=== PATIENT | male | born 1940 | race Caucasian/White ===

== ENCOUNTER 2017-09-28 10:58 | Emergency (ER) | payer OTHER, MEDICAID ==
[~2017-09-28] VITALS: Ht 170.2 cm; Wt 63.5 kg
[2017-09-28 11:00] VITALS: BP_SYST 153
--- NOTE | 2017-09-28 11:00 | NUR ---
BIB BLS from home Placed in room 02. Placed on clinical research monitor, blood pressure machine and pulse oximeter. To gown for exam. Side rails up. Pt blood sugar was 45 at home. D50 IVP given by EMS. Repeat bs 250 upon ED arrival. Pt awake, skin diaphoretic. Per report, pt has had many episodes of low bs with medic response.
--- NOTE | 2017-09-28 11:10 | NUR ---
Pt presents to ER coming from home c/o low blood sugar. Pt states bs was 45 before calling paramedics, pt received amp d50 en route and bs up to 250. Pt is AOX4, skin is cool & diaphoretic, pt speaking full sentences, no signs of respiratory distress, pt denies any pain at the moment.
--- NOTE | 2017-09-28 11:35 | NUR ---
Pt on gurney eating lunch, VSS, will continue to monitor.
[2017-09-28] MEDS ORDERED: NACL 0.9% 1,000 ML IV ONE ×2 (11:38→11:45)
[2017-09-28] MEDS ORDERED: ASPIRIN 81 MG TAB.CHEW PO ONE (11:45)
[2017-09-28 12:07] LABS: BASOPHILS % (AUTO) 0.2 % (0.0-2.0); EOSINOPHILS # (AUTO) 0.1 K/uL (0.0-0.4); EOSINOPHILS % (AUTO) 1.3 % (0.0-4.0); HEMATOCRIT 44.1 % (36-54); HEMOGLOBIN 14.2 g/dL (14.0-18.0); LYMPHOCYTES # (AUTO) 0.9 K/uL (1.0-5.5); LYMPHOCYTES % (AUTO) 8.6 % (20.5-51.5); MEAN CORPUSCULAR HEMOGLOBIN 30 pg (27-31); MEAN CORPUSCULAR HGB CONC 32 % (32-36); MEAN CORPUSCULAR VOLUME 93 fL (79.0-98.0); MONOCYTES # (AUTO) 0.8 K/uL (0.0-1.0); MONOCYTES % (AUTO) 7.6 % (1.7-9.3); NEUTROPHILS # (AUTO) 9.2 K/uL (1.8-7.7); NEUTROPHILS % (AUTO) 82.3 % (40.0-70.0); PLATELET COUNT (AUTO) 270 K/uL (130-430); RED BLOOD CELL COUNT(AUTO) 4.73 MIL/uL (4.2-6.2); RED CELL DISTRIBUTION WIDTH 12.6 % (9.0-15.0)
[2017-09-28 12:08] LABS: ANION GAP 6 (5-15); CALCIUM 9.6 mg/dL (8.4-11.0); CHLORIDE 103 mmol/L (98-107); CREATININE 0.96 mg/dL (0.55-1.30); GLUCOSE 96 mg/dL (70-99); POTASSIUM 3.9 mmol/L (3.5-5.1); SODIUM SERUM 139 mmol/L (136-145); UREA NITROGEN, BLOOD 20 mg/dL (8-21)
[2017-09-28 12:12] LABS: INR 0.9 (0.80-1.20); PROTHROMBIN TIME 9.6 SECS (9.5-12.5)
[2017-09-28 12:16] LABS: ALANINE AMINOTRANSFERASE 30 U/L (12-78); ALBUMIN 3.5 g/dL (3.4-4.8); ASPARTATE AMINOTRANSFERASE 29 U/L (10-37); TOTAL BILIRUBIN 0.3 mg/dL (0.0-1.0)
[2017-09-28] MEDS ORDERED: GLUCAGON,HUMAN RECOMBINANT 1 MG VIAL IVP ONE (12:45)
--- NOTE | 2017-09-28 12:45 | NUR ---
Dr. Owens at bedside updating pt on lab results.
--- NOTE | 2017-09-28 13:17 | NUR ---
Contacted pt's Carito she states she will come to pick pt up.
[2017-09-28 13:38] VITALS: BP_SYST 150
--- NOTE | 2017-09-28 13:38 | NUR ---
Patient given written and verbal discharge instructions and verbalizes understanding. ER MD discussed with patient the results and treatment provided. Patient in stable condition. ID arm band removed. IV catheter removed intact and dressing applied, no active bleeding. No Rx given. Patient educated on pain management and to follow up with PMD. Pain Scale 0/10. Opportunity for questions provided and answered. Medication side effect fact sheet provided. Pt placed in ER waiting room, waiting for to pick him up.
== END 2017-09-28 13:38 | disposition home or self-care (01) ==
LOC: SED 10:58
DX: E11.649 Type 2 diabetes mellitus with hypoglycemia without coma (principal); I10 Essential (primary) hypertension; E78.00 Pure hypercholesterolemia, unspecified
CPT/HCPCS: 36415; 71045; 80053; 84484; 85025; 85610; 85730; 93005; 96361; 96374; 99285; J1610; J7030

== ENCOUNTER 2018-12-25 11:45 | Inpatient (IN) | payer OTHER, MEDICAID ==
[~2018-12-25] VITALS: Ht 170.2 cm; Wt 63.5 kg
[2018-12-25 14:30] VITALS: BP_SYST 132
--- NOTE | 2018-12-25 14:31 | NUR ---
RECORDEDADMISSION: The patient, AUSTEN DIAZ, 78 y/o, M admitted by SON RIVAS MD, was given written information regarding hospital policies, unit procedures and contact persons. Valuables were checked and .
[2018-12-25] MEDS ORDERED: SITA100T11 PO (15:24)
[2018-12-25] MEDS ORDERED: INSU100V9 SQ ×2 (15:24)
[2018-12-25] MEDS ORDERED: ENAL5TAB77 PO (15:24)
[2018-12-25] MEDS ORDERED: APIX5TAB4 PO (15:24)
[2018-12-25] MEDS ORDERED: TAMS-11 PO (15:24)
[2018-12-25] MEDS ORDERED: ASPI-1154 PO (15:24)
[2018-12-25] MEDS ORDERED: LIP40 PO (15:24)
[2018-12-25 15:38] VITALS: BP_SYST 155
--- NOTE | 2018-12-25 16:00 | NUR ---
RN ROUNDS PATIENT IS RESTING COMFORTABLY IN BED. NO S/S OF DISTRESS OR SOB. PATIENT IS AWAKE AND ALERT. PATIENT ON ROOM AIR. NO NEEDS AT THIS TIME. CALL LIGHT IN REACH, BED IN LOWEST POSITION, AND WILL CONTINUE TO MONITOR.
[2018-12-25] MEDS: D5/0.45 NS 1,000 ML IV SCH (16:28)
--- NOTE | 2018-12-25 18:05 | NUR ---
CLOSING NOTE: PATIENT IS RESTING COMFORTABLY IN BED. NO S/S OF DISTRESS OR SOB. PATIENT IS AWAKE AND ALERT. NO S/S OF DISTRESS OR SOB. IV IS PATENT AND INFUSING. ALL NEEDS MET DURING SHIFT. CALL LIGHT IN REACH, BED IN LOWEST POSITION, AND WILL GIVE REPORT TO NIGHT NURSE.
[2018-12-25 19:08] VITALS: BP_SYST 128
--- NOTE | 2018-12-25 19:08 | NUR ---
Start of shift Assessment Received patient resting in bed awake alert oriented x2 with at bedside. No c/o pain and no s/s of any distress noted. IV noted L hand g 20 no infiltrate and with good blood return. All extremities are strong, ambulatory. Call light in reach, bed alarm, and side rails up x2 for safety. Will cont to monitor.
[2018-12-25 19:36] LABS: BASOPHILS # (AUTO) 0.1 K/uL (0.0-0.2); BASOPHILS % (AUTO) 0.7 % (0.0-2.0); EOSINOPHILS # (AUTO) 0.2 K/uL (0.0-0.4); EOSINOPHILS % (AUTO) 2.1 % (0.0-4.0); HEMATOCRIT 35.5 % (36-54); HEMOGLOBIN 11.5 g/dL (14.0-18.0); LYMPHOCYTES # (AUTO) 1.6 K/uL (1.0-5.5); LYMPHOCYTES % (AUTO) 14.1 % (20.5-51.5); MEAN CORPUSCULAR HEMOGLOBIN 28 pg (27-31); MEAN CORPUSCULAR HGB CONC 32 % (32-36); MEAN CORPUSCULAR VOLUME 88 fL (79.0-98.0); MONOCYTES % (AUTO) 9.4 % (1.7-9.3); NEUTROPHILS # (AUTO) 8.2 K/uL (1.8-7.7); NEUTROPHILS % (AUTO) 73.7 % (40.0-70.0); PLATELET COUNT (AUTO) 263 K/uL (130-430); RED BLOOD CELL COUNT(AUTO) 4.05 MIL/uL (4.2-6.2); WHITE BLOOD COUNT (AUTO) 11.1 K/uL (4.8-10.8)
[2018-12-25 19:43] LABS: ANION GAP 6 (5-15); CALCIUM 8.6 mg/dL (8.4-11.0); CHLORIDE 102 mmol/L (98-107); CREATININE 1.05 mg/dL (0.55-1.30); GLUCOSE 144 mg/dL (70-99); POTASSIUM 4.1 mmol/L (3.5-5.1); SODIUM SERUM 139 mmol/L (136-145); UREA NITROGEN, BLOOD 26 mg/dL (8-21)
[2018-12-25 19:58] LABS: ALANINE AMINOTRANSFERASE 23 U/L (12-78); ALBUMIN 2.6 g/dL (3.4-4.8); ASPARTATE AMINOTRANSFERASE 29 U/L (10-37); THYROID STIMULATING HORMONE 0.67 uIu/mL (0.36-3.74); TOTAL BILIRUBIN 0.3 mg/dL (0.0-1.0)
[2018-12-25] MEDS: APIXABAN 2.5 MG TABLET PO SCH (20:29)
--- NOTE | 2018-12-25 22:50 | NUR ---
Assisted to ambulate Assisted to ambulate in the hallway and safely back to bed. No c/o pain and no s/s of any distress noted. Call light in reach, will cont to monitor.
[2018-12-26 00:33] VITALS: BP_SYST 127
--- NOTE | 2018-12-26 04:14 | NUR ---
Assisted to b/r Assisted to bathroom and safely back to bed. No c/o pain and no s/s of any distress noted. Call light in reach, will cont to monitor.
[2018-12-26] MEDS: D5/0.45 NS 1,000 ML IV SCH (06:15)
--- NOTE | 2018-12-26 06:45 | NUR ---
End of shift Notes Patient is resting in bed with eyes close at this time. No c/o pain noted. All needs met and anticipated by staff. Call light in reach, bed alarm on, and side rails up x3 for safety. Will endorse care to incoming nurse.
--- NOTE | 2018-12-26 07:54 | NUR ---
Opening Note Report received from Karel MILLER shift nurse. Patient is awake, however, is very anxious and states that he wants to go home. Patient is alert and oriented x 2. Patient insists on ambulating around the unit with a walker. He is also refusing to the the bed alarm in place. Education on fall prevention was done. Patient was dismissive. IV is on the left hand 20 running D51/2NS@100. Call light is within reach and bed is in the lowest position. Will continue to monitor.
[2018-12-26 08:00] VITALS: BP_SYST 134
[2018-12-26] MEDS: ENALAPRIL MALEATE 5 MG TABLET (VASOTEC) PO SCH (09:37)
[2018-12-26] MEDS: ATORVASTATIN 20 MG TABLET PO SCH (09:37)
[2018-12-26] MEDS: TAMSULOSIN HCL 0.4 MG CAP PO SCH (09:37)
[2018-12-26] MEDS: ASPIRIN 81 MG TABLET(ECOTRIN) PO SCH (09:37)
[2018-12-26] MEDS: APIXABAN 2.5 MG TABLET PO SCH ×2 (09:43→21:20)
--- NOTE | 2018-12-26 10:30 | NUR ---
Rounds Patient once again stated that he wants to go home. Reorientation was provided.
--- NOTE | 2018-12-26 11:31 | NUR ---
Psych consult called: for Dr. Saleh, regarding agressive behavior, ordered by Dr. Crandall, spoke with Timbo. Face sheet faxed to office of Dr. Saleh: fax: [phone]
--- NOTE | 2018-12-26 11:43 | NUR ---
Survey Research Associate Note ICE CARVER was alerted that patient may need lobsterman placement. He has become violent with his and she stated she can no longer care for him at home. Alerted HCP MICHELE Paiz [phone]. She will discuss with Dr Crandall. Patient has Medi-Jay secondary.
--- NOTE | 2018-12-26 12:25 | NUR ---
Called Called Dr. Crandall to inform him that the patient's current BS is 361. There is no insulin coverage at this time. stated to dc the IV fluids.
[2018-12-26 14:10] VITALS: BP_SYST 131
--- NOTE | 2018-12-26 14:48 | NUR ---
Rounds Patient is ambulating around the unit with a walker despite being on fall precautions.
[2018-12-26 16:11] VITALS: BP_SYST 100
--- NOTE | 2018-12-26 17:09 | NUR ---
Accu check/MD Called Current accu check is 585. Hyperglycemia protocol initiated. Dr. Crandall called. Currently waiting for a call back.
--- NOTE | 2018-12-26 17:16 | NUR ---
ATTENDING MD DR RIVAS WAS CALLED RE: BS OF 205. SPOKE TO URVASHI
--- NOTE | 2018-12-26 17:34 | NUR ---
Called Dr. Crandall called again for the patient's BS of 585.
--- NOTE | 2018-12-26 17:55 | NUR ---
Med Given Administered 10 units of Regular insulin per MD order. Will recheck BS in 15 min.
[2018-12-26] MEDS ORDERED: INSULIN REGULAR, HUMAN 100 UNITS/ML, 10 ML VIAL SUBCUT ONE ×2 (18:00→18:45)
--- NOTE | 2018-12-26 18:22 | NUR ---
MD SCOTT PAGING THE [employer] DISTRICT SUPERVISOR PHYSICIAN: DR. RIVAS, REGARDING ORDERS, SPOKE WITH NATALIIA Addendum: 12/26/18 at 1828 by Nicolasa Russ [place]/ *DR. GEE IS [employer] DISTRICT SUPERVISOR
--- NOTE | 2018-12-26 18:23 | NUR ---
Accu check Checked BS again it is currently > 600. Calling MD precision farming coordinator for further orders.
--- NOTE | 2018-12-26 18:45 | NUR ---
Insulin given/Spoke with MD Spoke with Dr. Gutierrez and notified MD of BS > 600. 14 units of regular insulin was administered. Order for regular SS was obtained. Will recheck BS again per protocol. MD also wants BS to be checked in 2 hrs and notified of results.
--- NOTE | 2018-12-26 19:20 | NUR ---
Opening Note Late entry d/t patient care. Received report from DAKOTA Falcon and patient was awake, standing in hallway next to his room. Upon completion of report patient walked back to room, and sat on the edge of bed with feet dangling. He was not short of breath, nor did he exhibit labored breathing. He was AOx3. IV is on left hand and is saline locked. Bed is locked to lowest position and call light within reach. Presently bed alarm is not on. His is at bedside visiting. Updated board and reviewed plan of care. asked that we request advance directive record from [facility], stating she might not be able to bring the form from her house, since transportation is an issue. She signed the medical records release form.
[2018-12-26 20:00] VITALS: BP_SYST 96
--- NOTE | 2018-12-26 21:20 | NUR ---
NOTES Patient presently resting in bed, in no distress, nonlabored breathing on room air. Due medication given and assessed fingerstick blood glucose; obtained result of 433, will call
--- NOTE | 2018-12-26 21:31 | NUR ---
Fingerstick BG is 433 mg/dL Called and spoke w/ Dr. Gutierrez. She was informed of Fingerstick BG result of 433 mg/dL. She said go ahead and give the 12Units Reg insulin per protocol as ordered, re-check FBG in two hours and call w/ results.
[2018-12-26] MEDS: INSULIN REGULAR, HUMAN 100 UNITS/ML, 10 ML VIAL (novoLIN R) SUBCUT PRN (21:40)
--- NOTE | 2018-12-26 22:33 | NUR ---
NOTES Patient is resting in bed on side posture. Presently bed alarm is off, he refused after it went off earlier. He was educated on risks and benefits of bed alarm. Call light w/in reach. Will monitor.
--- NOTE | 2018-12-26 23:22 | NUR ---
NOTES - Fingerstick BG Per Dr. Gutierrez's order a Fingerstick BG was done and obtained result of 273 mg/dL, will notify .
--- NOTE | 2018-12-26 23:27 | NUR ---
s/w Spoke to Dr. Gutierrez and reported FBG result of 273 mg/dL. She said that is fine and not to give insulin. She gave an order for next FBG test to be done at 0500. I read back and confirmed order.
--- NOTE | 2018-12-26 23:54 | NUR ---
NOTES OOB and ambulating w/FWW, standing at doorway, he did not call for help. I asked if he needs help. He said his gown is wet. He was provided with a new gown, ashley-care and he returned to bed. He requested to have the lights off. He is resting on side posture, no sign of distress. Will monitor.
--- NOTE | 2018-12-27 01:39 | NUR ---
NOTES - OOB Patient OOB and ambulating in hallway, he said needs to walk. He ambulated approximately 50 [address] on hallway using FFW and turned back. He asked for juice and was provided with apple juice. He returned to his room and is sitting at bedside, with feet dangling and watching t.v. Will monitor.
[2018-12-27 01:55] VITALS: BP_SYST 109
--- NOTE | 2018-12-27 02:19 | NUR ---
NOTES Patient is resting in bed, lying down on side posture w/ eyes closed. Nonlabored breathing. Call light w/in reach. Will monitor.
--- NOTE | 2018-12-27 03:05 | NUR ---
NOTES Patient is awake and standing at doorway with support of FWW. He said today he is going home. I let him know it is 0245 am and the doctor has not discharged him, his blood glucose level is elevated. He got a little loud, though he was not aggressive or combative and insisted that he is going home later because he's been here too long. He ambulated in the hallway once again a distance of 60 feet, to end of hallway, and turned back. He went back to bed and is quiet and calm as he watches t.v. Will monitor.
--- NOTE | 2018-12-27 05:17 | NUR ---
NOTE Patient's Fingerstick BG was checked per 's order. The result is 267 mg/dL, which is a decrease from last reading. Charge nurse recommends hold call, since it is trending down. The next scheduled accucheck is for 0700 and has insulin orders per sliding scale. Will follow-up.
[2018-12-27] MEDS: INSULIN REGULAR, HUMAN 100 UNITS/ML, 10 ML VIAL (novoLIN R) SUBCUT PRN ×4 (06:54→20:06)
--- NOTE | 2018-12-27 06:59 | NUR ---
closing notes Patient is awake and was sitting on edge of bed with feet dangling. Fingerstick BG result was 287 mg/dL. He is in no distress. He insists he wants to go home. He insisted on walking and is ambulating in hallway with FWW. Needs met throughout shift, will endorse.
[2018-12-27] MEDS: TAMSULOSIN HCL 0.4 MG CAP PO SCH (08:31)
[2018-12-27] MEDS: ASPIRIN 81 MG TABLET(ECOTRIN) PO SCH (08:31)
[2018-12-27] MEDS: ATORVASTATIN 20 MG TABLET PO SCH (08:31)
[2018-12-27] MEDS: APIXABAN 2.5 MG TABLET PO SCH ×2 (08:32→20:05)
[2018-12-27] MEDS: ENALAPRIL MALEATE 5 MG TABLET (VASOTEC) PO SCH (08:32)
[2018-12-27 08:36] VITALS: BP_SYST 119
--- NOTE | 2018-12-27 08:36 | NUR ---
Opening note/Medication patient resting in bed, a/ox3, asking when he will go home, informed patient that when the doctor comes we can ask, he verbalized understanding, assessment complete, patient denies pain, educated on plan of care, call light system and morning medications uses and potential side effects, he verbalized understanding and tolerated well, patient is cooperative at this time, continuing to monitor, bed in lowest position, two side rails up, call light within reach, fall, aspiration and isolation precautions in place.
--- NOTE | 2018-12-27 09:37 | NUR ---
Patient ambulating with walker in the hallway, stable condition at this time, continuing to monitor.
--- NOTE | 2018-12-27 10:00 | NUR ---
Dr. Crandall rounds assessed patient, will follow up with any new orders.
--- NOTE | 2018-12-27 10:08 | NUR ---
Dr. Saleh rounds assessed patient, spoke with Dr. Crandall regarding plan of care.
--- NOTE | 2018-12-27 10:45 | NUR ---
Nutrition Update [place] Scale 18 noted. Pt admitted for hypoglycemia. Diet: [facility] [place] BMI: 21.9 kg/m2 RD to follow per nutrition care standards.
[2018-12-27 11:10] VITALS: BP_SYST 132
--- NOTE | 2018-12-27 11:14 | NUR ---
RN rounds/blood glucose patient resting in bed, awake, denies pain, blood glucose checked, educated patient on need for insulin coverage uses and potential side effects, he verbalized understanding, insulin coverage provided per MD orders, patient tolerated well, continuing to monitor, bed in lowest position, two side rails up, call light within reach, fall, aspiration and isolation precautions in place.
--- NOTE | 2018-12-27 11:54 | NUR ---
Spoke with patient's regarding plan of care, will call Izabel WISDOM CM as well.
--- NOTE | 2018-12-27 11:58 | NUR ---
Spoke with Hotel Director Izabel ([phone]), to inform that Dr. Saleh did come to see the patient and he spoke with Dr. Crandall as well. Izabel looking at available beds for the patient and she will call Dr. Saleh as well to get his recommendation. Will follow up as needed.
--- NOTE | 2018-12-27 13:18 | NUR ---
RN rounds patient resting in bed, eyes closed, breathing is even and unlabored, no signs of distress, continuing to monitor, bed in lowest position, two side rails up, call light within reach, fall, isolation and aspiration precautions in place.
--- NOTE | 2018-12-27 14:56 | NUR ---
Spoke with Dr. Delfino RAMIREZ gave information for potential accepting facility [facility] in [place], stated to call Yolanda [phone], will inform Izabel WISDOM Professor Of Voice.
--- NOTE | 2018-12-27 15:15 | NUR ---
Called HCP CM regarding Dr. Saleh, left voicemail to call back for information.
--- NOTE | 2018-12-27 15:19 | NUR ---
RN rounds patient ambulating with walker in hallway, breathing is even and unlabored, no signs of distress, stable, continuing to monitor, fall precautions in place.
[2018-12-27 15:38] VITALS: BP_SYST 115
--- NOTE | 2018-12-27 17:23 | NUR ---
RN rounds/blood glucose patient resting in bed, awake, denies pain, blood glucose checked, educated patient on need for insulin coverage uses and potential side effects, he verbalized understanding, insulin coverage provided per MD orders, patient tolerated well, Dr. Crandall paged regarding high blood glucose level, continuing to monitor, bed in lowest position, two side rails up, call light within reach, fall, aspiration and isolation precautions in place.
--- NOTE | 2018-12-27 17:24 | NUR ---
MD SONIA DURON CALLED AT SPOKE WITH LUMA.
--- NOTE | 2018-12-27 18:08 | NUR ---
Spoke with HCP MICHELE Paiz regarding DC planning, pending at this time, no bed available.
--- NOTE | 2018-12-27 18:11 | NUR ---
Second page to Dr. Crandall regarding critical blood glucose.
--- NOTE | 2018-12-27 18:36 | NUR ---
DR. GEE RETURNED PAGE NO FURTHER ORDERS.
--- NOTE | 2018-12-27 18:37 | NUR ---
CLOSING NOTE PATIENT RESTING IN BED, AWAKE, DENIES PAIN, ALL NEEDS MET, WILL ENDORSE REPORT TO NOC SHIFT NURSE, BED IN LOWEST POSITION, TWO SIDE RAILS UP, CALL LIGHT WITHIN REACH, FALL, ASPIRATION AND ISOLATION PRECAUTIONS IN PLACE.
--- NOTE | 2018-12-27 19:05 | NUR ---
OPENING NOTES Bedside report received from dayshift nurse. Patient received getting in bed, patient walked from bathroom. No s/s of acute distress noted. Breathing is even and unlabored. Patient denies any pain or discomfort. IV site is patent, no signs of infiltration or infection noted. Skin warm and dry to touch, no signs of hypoglycemia noted, snacks offered but patient refused. Call light is with patient, instructed to call for assistance when needed, patient verbalized understanding. Bed is locked and at lowest position. Will continue to monitor.
[2018-12-27 20:00] VITALS: BP_SYST 151
--- NOTE | 2018-12-27 21:00 | NUR ---
ROUNDS Patient in bed, eyes closed, appears to be asleep. No signs of discomfort noted. Chest rise and fall even bilaterally. Call light with patient. Will continue to monitor.
--- NOTE | 2018-12-27 23:00 | NUR ---
ROUNDS Patient in bed, awake, anxious. Patient is aware that his is getting admitted tonight and keeps asking if she is here yet, on the floor. Breathing is even and unlabored. Call light with patient. Will continue to monitor.
[2018-12-28 00:54] VITALS: BP_SYST 110
--- NOTE | 2018-12-28 01:00 | NUR ---
ROUNDS Patient in bed, sleeping comfortably. No signs of discomfort noted. Chest rise and fall even bilaterally. Call light with in reach. Will continue to monitor.
--- NOTE | 2018-12-28 03:00 | NUR ---
ROUNDS Patient in bed sleeping. No s/s of acute distress noted. Breathing even and unlabored. Call light within reach. Will continue to monitor.
[2018-12-28 08:00] VITALS: BP_SYST 138
--- NOTE | 2018-12-28 08:00 | NUR ---
AM NOTES PT IN BED, AWAKE ALERT. AMBULATE WITH FWW WITH SUPERVISION. DENIES ANY PAIN OR DISCOMFORT. NO ACUTE DISTRESS NOTED.SAFETY PRECAUTION OBSERVED. REFUSED BED ALARM. PT GET UP WITHOUT CALLING. ENC TO CALL FOR HELP NEEDED. PT GETS AGITATED AT TIMES AND DOES NOT WANT TO BE BOTHER. WILL MONITOR.
[2018-12-28] MEDS: TAMSULOSIN HCL 0.4 MG CAP PO SCH (09:42)
[2018-12-28] MEDS: ATORVASTATIN 20 MG TABLET PO SCH (09:42)
[2018-12-28] MEDS: APIXABAN 2.5 MG TABLET PO SCH ×2 (09:43→20:41)
[2018-12-28] MEDS: ASPIRIN 81 MG TABLET(ECOTRIN) PO SCH (09:44)
[2018-12-28] MEDS: ENALAPRIL MALEATE 5 MG TABLET (VASOTEC) PO SCH (09:44)
--- NOTE | 2018-12-28 11:01 | NUR ---
Notes Patient wants to go home and does not want to go to SNF as plan as i was told. Patient's is as a patient also and made aware. is agreeable since patient want to go home. Patient has a walker at home.
[2018-12-28 11:03] VITALS: BP_SYST 120
[2018-12-28] MEDS: INSULIN REGULAR, HUMAN 100 UNITS/ML, 10 ML VIAL (novoLIN R) SUBCUT PRN ×3 (12:10→20:41)
--- NOTE | 2018-12-28 12:18 | NUR ---
Notes- Spoke to Dr. South and made aware of blood sugar is 412 and also patient is not safe to go home by himself at this time since his was here and admitted also and per , patient's sometimes take his insulin double because he forgets. Dr. south cancelled Discharge home and to D?C patient to SNF.
--- NOTE | 2018-12-28 14:08 | NUR ---
notes- Pt walking in the hallway with FWW, pt ask if he has insulin already. Informed patient that i gave his insulin already at lunch time.
[2018-12-28 15:15] VITALS: BP_SYST 119
--- NOTE | 2018-12-28 17:09 | NUR ---
Notes- Pt is agitated at this time. He wants to go home. Pt take out his IV. Informed patient that his blood sugar is not controlled yet and its not safe to be home by himself.
--- NOTE | 2018-12-28 17:56 | NUR ---
HCP PHARMACEUTICAL PROCESS ENGINEER AWARE OF DISCHARGE.
--- NOTE | 2018-12-28 18:17 | NUR ---
NOTES- SPOKE TO DR. TURNER AND MADE AWARE THAT PT IS VERY AGITATED , WANTS TO GO HOME AND REFUSING SNF. PER MD TO LET SIGNED AMA IF HE INSISTED TO GO HOME.
--- NOTE | 2018-12-28 18:20 | NUR ---
CALLED DR GEE CALLED AND SAID IF PT DECIDE TO LEAVE AMA NOTIFY POLICE DEPARTMENT FOR PERIODICALLY WELL BEING CHECK . PRIMARY NURSE NIRALI AND AIRWAY CONTROLLER FABIENNE MADE AWARE. WE WILL ENDORSE TO CORK INSULATION SETTER CHARGE NURSE AUSTEN.
--- NOTE | 2018-12-28 18:36 | NUR ---
NOTES- SITTING IN THE CHAIR AT THIS TIME. REFUSED TO RE CHECK HIS BLOOD SUGAR AND TO START IV. PT IS CALM FOR NOW. WILL LET HER SIGN AMA IF HE STILL INSISTED TO GO. WILL ENDORSE.
--- NOTE | 2018-12-28 19:05 | NUR ---
OPENING NOTES Patient in bed, awake, alert, oriented, calm, no s/s of acute distress noted. Breathing even and unlabored. Patient stated that he was going home tomorrow. No active bleeding noted. Skin warm and dry to touch. Call light with patient, instructed to call for assistance, patient verbalized understanding. Bed is locked and at lowest position. Will continue to monitor.
[2018-12-28 20:00] VITALS: BP_SYST 120
--- NOTE | 2018-12-28 21:00 | NUR ---
REFUSED IV AND MIDNIGHT VITALS Patient refused to have IV started at this time. Patient stated that he does not want it and that he does not want to be woken up again tonight. Patient stated that he does not want to be woken up multiple times to have his vitals taken and refuses the midnight vitals. All needs met at this time. Call light with patient. Will continue to monitor.
--- NOTE | 2018-12-28 23:00 | NUR ---
ROUNDS Patient walking around in his room. Asked if he needed assistance, patient declined. No s/s of acute distress. Breathing even and unlabored. Call light with in reach. Will continue to monitor. Addendum: 12/29/18 at 0139 by Jon Ott RN ADDITIONAL/IV SITE Asked patient if IV can be started, patient still refuses. Charge nurse made aware. Will continue to encourage throughout shift.
--- NOTE | 2018-12-29 01:00 | NUR ---
ROUNDS Patient in bed sleeping. No signs of discomfort noted. Chest rise and fall even bilaterally. Call light with patient. Will continue to monitor.
--- NOTE | 2018-12-29 03:00 | NUR ---
ROUNDS Patient in bed sleeping. No s/s of acute distress. Breathing even and unlabored. Will continue to monitor.
--- NOTE | 2018-12-29 05:00 | NUR ---
REFUSED LAB Patient refused to have blood drawn, patient educated on its purpose, patient still refuses. Patient stated," What's the use, I am going home today anyway". Charge nurse made aware. Will continue to monitor.
[2018-12-29] MEDS: INSULIN REGULAR, HUMAN 100 UNITS/ML, 10 ML VIAL (novoLIN R) SUBCUT PRN ×2 (06:09→12:19)
--- NOTE | 2018-12-29 06:32 | NUR ---
CLOSING NOTES Patient in bed sleeping at this time. No s/s of acute distress noted. Breathing is even and unlabored. No IV site, will endorse to dayshift, charge nurse aware. Patient refused lab, will endorse to dayshift, and will continue to encourage. Skin warm and dry to touch, no signs of hypoglycemia noted. All needs met throughout shift. Fall and safety precautions maintained throughout shift. Will continue to monitor until patient care is endorsed to oncoming dayshift nurse.
--- NOTE | 2018-12-29 07:55 | NUR ---
INITIAL ROUNDS Received pt AAOx4, no s/s resp distress, no c/o pain or discomfort. 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 Pt unhappy with still being in the hospital-pt stated "I want to go home today, tell the doctor". Plan of care for the day reviewed with pt-pt verbalized his understanding, then pt stated "talk to the doctor, send me home". Pain management, Hypoglycemia, skin and safety discussed-teach back done. Call light within reach.
[2018-12-29 08:00] VITALS: BP_SYST 121
[2018-12-29 08:26] LABS: BASOPHILS # (AUTO) 0.1 K/uL (0.0-0.2); BASOPHILS % (AUTO) 0.6 % (0.0-2.0); EOSINOPHILS # (AUTO) 0.3 K/uL (0.0-0.4); EOSINOPHILS % (AUTO) 3.6 % (0.0-4.0); HEMATOCRIT 39.8 % (36-54); HEMOGLOBIN 12.8 g/dL (14.0-18.0); LYMPHOCYTES # (AUTO) 1.5 K/uL (1.0-5.5); LYMPHOCYTES % (AUTO) 15.1 % (20.5-51.5); MEAN CORPUSCULAR HEMOGLOBIN 29 pg (27-31); MEAN CORPUSCULAR HGB CONC 32 % (32-36); MEAN CORPUSCULAR VOLUME 89 fL (79.0-98.0); MONOCYTES # (AUTO) 0.9 K/uL (0.0-1.0); MONOCYTES % (AUTO) 8.8 % (1.7-9.3); NEUTROPHILS # (AUTO) 7.1 K/uL (1.8-7.7); NEUTROPHILS % (AUTO) 71.9 % (40.0-70.0); PLATELET COUNT (AUTO) 274 K/uL (130-430); RED BLOOD CELL COUNT(AUTO) 4.47 MIL/uL (4.2-6.2); RED CELL DISTRIBUTION WIDTH 14.3 % (9.0-15.0); WHITE BLOOD COUNT (AUTO) 9.8 K/uL (4.8-10.8)
[2018-12-29 08:50] LABS: ANION GAP 10 (5-15); CALCIUM 9.4 mg/dL (8.4-11.0); CHLORIDE 98 mmol/L (98-107); CREATININE 1.15 mg/dL (0.55-1.30); GLUCOSE 393 mg/dL (70-99); POTASSIUM 4.9 mmol/L (3.5-5.1); SODIUM SERUM 133 mmol/L (136-145); UREA NITROGEN, BLOOD 35 mg/dL (8-21)
[2018-12-29 08:56] LABS: ALANINE AMINOTRANSFERASE 32 U/L (12-78); ALBUMIN 3.2 g/dL (3.4-4.8); ASPARTATE AMINOTRANSFERASE 27 U/L (10-37); TOTAL BILIRUBIN 0.5 mg/dL (0.0-1.0)
[2018-12-29] MEDS: ENALAPRIL MALEATE 5 MG TABLET (VASOTEC) PO SCH (09:45)
[2018-12-29] MEDS: ASPIRIN 81 MG TABLET(ECOTRIN) PO SCH (09:45)
[2018-12-29] MEDS: ATORVASTATIN 20 MG TABLET PO SCH (09:46)
[2018-12-29] MEDS: TAMSULOSIN HCL 0.4 MG CAP PO SCH (09:46)
[2018-12-29] MEDS: APIXABAN 2.5 MG TABLET PO SCH (09:47)
--- NOTE | 2018-12-29 10:59 | NUR ---
ROUNDS/HCP MANAGER LONG TERM CARE Pt resting quietly in bed with no s/s resp distress, no c/o pain or discomfort. Pt seen by Dr. Janice Barrios earlier and pt refused to go to a SNF, ordered D/C home with Home Health Evaluation for Disease Management. Pt aware of discharge order. Needs met. Spoke with Nicolasa Bag Printer from [facility] and informed her of order-faxed order to [phone] per request.
[2018-12-29 11:31] VITALS: BP_SYST 132
[2018-12-29 13:09] VITALS: BP_SYST 132
[2018-12-29 15:32] VITALS: BP_SYST 132
--- NOTE | 2018-12-29 17:13 | NUR ---
DC INSTRUCTIONS Exitcare on Hypoglycemia explained and given to pt-teach back done. Pt's is also a patient here and is also discharged home-she is currently trying to get a hold of a neighbor to pick them up-waiting to hear back from the neighbor. Charge nurse aware.
--- NOTE | 2018-12-29 17:50 | NUR ---
PATIENT DISCHARGED Pt left floor via wheelchair to private vehicle accompanied by his neighbor and his Carito in no distress. Paddy neumann sent with pt.
== END 2018-12-29 17:50 | disposition home health service (06) | DRG 639 ==
LOC: SMU 15:25
PROVIDERS: ADMIT Internal Medicine Hospice and Palliative Medicine; ATTEND Internal Medicine Hospice and Palliative Medicine
DX: E11.649 Type 2 diabetes mellitus with hypoglycemia without coma (principal); F03.90 Unspecified dementia, unspecified severity, without behavioral disturbance, psychotic disturbance, mood disturbance, and anxiety; I10 Essential (primary) hypertension; Z79.4 Long term (current) use of insulin; Z87.891 Personal history of nicotine dependence; Z91.19 Patient's noncompliance with other medical treatment and regimen
CPT/HCPCS: 36415; 71045; 80053; 82962; 83036; 84443-TC; 85025; 87081; 87086; 87186-TC; 93005; J1815